=== PATIENT | male | born 1965 | race Caucasian/White ===

== ENCOUNTER 2021-04-02 19:18 | Emergency (ER) | payer BC ==
[~2021-04-02] VITALS: Ht 182.9 cm; Wt 97.5 kg
[2021-04-02] MEDS: CASIRIVIMAB/IMDEVIMAB 10 ML in SODIUM CHLORIDE 0.9% 100 ML IV ONE (20:30)
== END 2021-04-02 21:43 | disposition home or self-care (01) ==
LOC: ER 20:27
DX: U07.1 COVID-19 (principal)
CPT/HCPCS: 99283; J7050